=== PATIENT | female | born 1985 | race Caucasian/White ===

== ENCOUNTER 2020-11-04 21:58 | Emergency (ER) | payer OTHER, MEDICAID ==
[~2020-11-04] VITALS: Ht 175.3 cm; Wt 67.1 kg
[~2020-11-04 21:58] MED LIST: ACYCLOVIR 400400 M1 PO; AMOXICILLIN 50500 MG PO; IBUPROFEN 800800 M1 PO; LORTAB 5 MG/5001 TA1 PO; METOPROLOL TART25 MG PO; PENICILLIN V P500 MG PO; ULTRAM 50MG TAB50 MG PO; ZOFRAN ODT4 MG PO
[2020-11-04] MEDS ORDERED: CITALOPRAM HBR40 MG PO (22:11)
[2020-11-04] MEDS ORDERED: AUGMENTIN 500-1 EACH PO (22:39)
[2020-11-04] MEDS ORDERED: ACETAMINOPHEN-1 EAC2 PO (22:39)
[2020-11-04] MEDS ORDERED: IBUPROFEN 800800 MG PO (22:39)
[2020-11-04 22:47] VITALS: BP 144/102
== END 2020-11-04 22:47 | disposition home or self-care (01) ==
LOC: M.ERS 21:58
DX: K08.89 Other specified disorders of teeth and supporting structures (principal); Z90.710 Acquired absence of both cervix and uterus

== ENCOUNTER 2021-09-27 22:54 | Emergency (ER) | payer OTHER, MEDICAID ==
[~2021-09-27] VITALS: Ht 175.3 cm; Wt 64.4 kg
[~2021-09-27 22:54] MED LIST changes: +ACETAMINOPHEN-1 EAC2 PO; +AUGMENTIN 500-1 EACH PO; +CITALOPRAM HBR40 MG PO; +IBUPROFEN 800800 MG PO
[2021-09-27 23:25] LABS: URINE BILIRUBIN NEGATIVE (Negative); URINE BLOOD NEGATIVE (Negative); URINE CLARITY CLEAR; URINE COLOR YELLOW; URINE GLUCOSE-RANDOM NEGATIVE (Negative); URINE KETONES NEGATIVE (Negative); URINE LEUKOCYTES-REFLEX NEGATIVE (Negative); URINE NITRITE-REFLEX NEGATIVE (Negative); URINE PROTEIN NEGATIVE (Negative); URINE SPECIFIC GRAVITY 1.025 (1.005-1.030); URINE UROBILINOGEN 0.2 E.U./dl (0.2-1.0)
[2021-09-28 00:43] LABS: ABSOLUTE BASOPHILS 0.1 thou/uL (0.0-0.2); ABSOLUTE EOSINOPHILS 0.2 thou/uL (0.0-0.7); ABSOLUTE LYMPHOCYTES 3.5 thou/uL (0.8-5.3); ABSOLUTE MONOCYTES 0.5 thou/uL (0.0-1.2); ABSOLUTE NEUTROPHILS 3.2 thou/uL (1.6-8.1); BASOPHILS 0.8 %; EOSINOPHILS 2.8 %; HEMATOCRIT 38.9 % (37.0-47.0); HEMOGLOBIN 13.6 gm/dL (12.0-15.0); LYMPHOCYTES 46.9 %; MCH 32.1 pg (26.0-34.0); MCV 91.8 fL (80.0-100.0); MONOCYTES 6.4 %; MPV 10.9 fl. (7.2-11.1); NUCLEATED RBCS 0 /100WBC; PLATELET COUNT* 90 thou/uL (150-400); POLYS 43.1 %; RBC 4.24 mil/uL (4.20-5.00); RDW-CV 12.9 % (10.5-14.5); WBC 7.5 thou/uL (4.0-11.0)
[2021-09-28 00:56] LABS: CALCIUM 8.6 mg/dL (8.5-10.1); CREATININE 0.9 mg/dL (0.6-1.3); POTASSIUM 3.4 mmol/L (3.5-5.1)
[2021-09-28 01:01] LABS: ALBUMIN 3.8 g/dL (3.4-5.0); TOTAL BILIRUBIN 0.3 mg/dL (<0.1-1.0); TOTAL PROTEIN 6.1 g/dL (6.4-8.2)
[2021-09-28] MEDS ORDERED: ZOFRAN ODT4 MG PO (04:30)
[2021-09-28] MEDS ORDERED: TORADOL 10 MG T10 MG PO (04:30)
[2021-09-28 04:45] VITALS: BP 130/87
== END 2021-09-28 04:45 | disposition home or self-care (01) ==
LOC: M.ERS 22:54
PROVIDERS: Personal Emergency Response Attendant
DX: R10.2 Pelvic and perineal pain (principal); R10.31 Right lower quadrant pain; R10.32 Left lower quadrant pain; Z90.710 Acquired absence of both cervix and uterus; Z79.899 Other long term (current) drug therapy